=== PATIENT | female | born 1975 | race Caucasian/White ===

== ENCOUNTER 2017-02-16 14:12 | Emergency (ER) | payer OTHER ==
[~2017-02-16] VITALS: Ht 165.1 cm; Wt 60.5 kg
[2017-02-16 14:20] VITALS: TEMP 36.6; Ht 165.1 cm; Wt 60.5 kg
[2017-02-16] MEDS ORDERED: ACETAMINOPHEN 500 MG TAB PO STA (15:19)
--- NOTE | 2017-02-16 15:25 | EMERGENCY ROOM VISIT NOTE ---
History First contact with patient: 14:58 Chief Complaint: WRIST PAIN Stated Complaint: RIGHT WRIST/HAND PAIN History of Present Illness The patient is a 41 year old female who presents to the Emergency Room via private vehicle with complaints of "right wrist/right hand pain. The patient states that she has a history of carpal tunnel, and today around 7 AM, she was lifting a heavy box, and developed a shooting pain in her right wrist full by numbness in her hand. She states that the numbness has subsided but the pain persists. She states that she left work, and went home to rest and took Aleve which is not providing any relief of her pain. She states that she has difficulty moving her fingers. She is right-handed. She is an apartment scheduled with Dr. Ojeda on March 22, and has a nerve conduction study also scheduled in the meantime. She denies any allergies. Review of Systems A complete 6-point Review of Systems was discussed with the patient, with pertinent positives and negatives listed in the History of Present Illness. All remaining Review of Systems questions can be considered negative unless otherwise specified. Past Medical/Surgical History Medical Problems: (1) Carpal tunnel syndrome Family History No pertinent. Social History Smoking Status: Current Every Day Smoker Alcohol Use: occasionally Drug Use: none Marital Status: Occupation Status: employed Current/Historical Medications Scheduled PRN Hydrocodone/Acetaminophen 5MG/325MG (Diamond 5MG/325MG), 1-2 TABLET PO Q6 PRN for Pain Physical Exam Vital Signs Date Time Temp Pulse Resp B/P (MAP) Pulse Ox O2 Delivery O2 Flow Rate FiO2 02/16/17 14:20 36.6 116 16 118/74 98 Room Air Physical Exam VITAL SIGNS - Vital signs and nursing notes were reviewed. Afebrile, normotensive, tachycardic at a rate of 116 bpm, and is saturating well on room air 98%. GENERAL -41-year-old female appearing her stated age who is in no acute distress. Communicates well with provider and answers questions appropriately. SKIN - Without rashes. Skin overlying the right wrist is unremarkable. No breaks in the integument. HEAD - NC/AT. EXTREMITIES - No clubbing or peripheral cyanosis. No pretibial edema present. There is tenderness palpation overlying the right ventral aspect of the distal wrist, as well as upon passive flexion of the right hand/wrist. There is no tenderness to palpation overlying the hand. There is near full range of motion of this region. No neurovascular deficits appreciated. +5/5 strength noted in UE/LE bilaterally. Medical Decision & Procedures ER Provider Diagnostic Interpretation: RIGHT HAND MIN 3 VIEWS ROUTINE CLINICAL HISTORY: Right hand pain. COMPARISON: None FINDINGS: Alignment of the right hand is anatomic. No fracture is identified. Joint spaces are preserved. There is no acute fracture. IMPRESSION: No acute fracture or dislocation of the right hand. Electronically signed by: Roland Calderón M.D. 02/16/2017 3:40 PM Dictated Date/Time: 02/16/2017 3:39 PM RIGHT WRIST W/NAVICULAR MIN 3 VIEWS CLINICAL HISTORY: Right wrist pain. COMPARISON: None FINDINGS: Alignment of the right carpal bones is anatomic. There is no fracture. There is no acute fracture of the distal right radius or ulna. IMPRESSION: No acute fracture or dislocation of the right wrist. Electronically signed by: Roland Calderón M.D. 02/16/2017 3:39 PM Dictated Date/Time: 02/16/2017 3:38 PM Medications Administered Medications (Trade) Dose Ordered Sig/Edilson Route Start Time Stop Time Status Last Admin Dose Admin Acetaminophen (Tylenol Tab) 500 mg NOW STAT PO 02/16/17 15:19 02/16/17 15:20 DC 02/16/17 15:44 500 MG Medical Decision Patient was seen and evaluated as above. After obtaining a thorough history and physical examination radiographs were obtained and the affected regions and ice pack was applied. Patient drove here today, therefore was even Tylenol for her pain. Radiographs are negative, with results as above. I suspect she is experiencing exacerbation of her chronic carpal tunnel. On examination, there is no evidence of neurovascular compromise. She was already wearing a wrist lacer, and was offered another splint but declined. I believe her current splint is appropriate. She is to follow up with neurology, and her family doctor. She was given light duty work restriction. She was educated upon worrisome symptoms which to return, had questions by discharge, and was discharged home in good condition. I did check the patient has many drug monitoring system, and only has one prescription in the past. Due to her subjective reports of pain, and her underlying history of carpal tunnel I will provide her a short course of Diamond. This is on a one-time basis. She was extensively educated upon this. In the evaluation and treatment of this patient, the following differential diagnoses were considered: Wrist Sprain, Wrist Fracture, Wrist Dislocation, Scapholunate Dissociation, Carpal Fracture, Metacarpal Fracture, Radial Styloid Process Fracture, Ulnar Styloid Process Fracture, or Carpal Tunnel Syndrome. Medication Reconcilliation Current Medication List: was not reviewed Impression Primary Impression: Wrist pain, right Departure Information Dispostion Home / Self-Care Condition GOOD Prescriptions Hydrocodone/Acetaminophen 5MG/325MG (Diamond 5MG/325MG) Tab 1-2 TABLET PO Q6 Y for Pain, #15 TAB For Initial Treatment Prov: Bart Veras PA-C 02/16/17 Referrals Kar Esparza M.D.([facility]) (PCP) Patient Instructions My [facility] Additional Instructions You have been treated in the Emergency Department for Wrist Pain. You have been prescribed NORCO to be used for pain control. This is a narcotic medication. You cannot drive or consume alcohol while on this medicine. This medicine should only be used for pain that cannot be controlled with over-the- counter pain medicines. PLEASE NO TYLENOL WITH THE NORCO!! For pain control, you can use the following [id number] medicines (if >12 yo): - Regular strength (200 mg/tab) Advil (ibuprofen) 1-2 tabs every 4-6 hours as needed. Do not exceed a dose of 3200 mg per day. If this is a recent injury (<24 hrs), ice can be applied to the area of pain for the first 3 days to help decrease pain and inflammation. You have been provided the number for an Orthopaedic Surgeon. You should call this number as soon as possible to establish a follow-up visit from today's Emergency Department visit. Keep the brace/splint in place until evaluated by your family doctor or neurology. Return to the Emergency Department if your current symptoms worsen despite treatment course outlined above, or if you develop any of the following symptoms : intractable pain despite aforementioned treatment course or new onset of numbness or tingling of the fingers. Please return the emergency department with any new/his symptoms.
--- NOTE | 2017-02-16 15:40 | DIAGNOSTIC IMAGING REPORT ---
RIGHT WRIST W/NAVICULAR MIN 3 VIEWS CLINICAL HISTORY: Right wrist pain. COMPARISON: None FINDINGS: Alignment of the right carpal bones is anatomic. There is no fracture. There is no acute fracture of the distal right radius or ulna. IMPRESSION: No acute fracture or dislocation of the right wrist. Electronically signed by: Roland Calderón M.D. 02/16/2017 3:39 PM Dictated Date/Time: 02/16/2017 3:38 PM
--- NOTE | 2017-02-16 15:42 | DIAGNOSTIC IMAGING REPORT ---
RIGHT HAND MIN 3 VIEWS ROUTINE CLINICAL HISTORY: Right hand pain. COMPARISON: None FINDINGS: Alignment of the right hand is anatomic. No fracture is identified. Joint spaces are preserved. There is no acute fracture. IMPRESSION: No acute fracture or dislocation of the right hand. Electronically signed by: Roland Calderón M.D. 02/16/2017 3:40 PM Dictated Date/Time: 02/16/2017 3:39 PM
[2017-02-16] MEDS ORDERED: HYDR-5688 PO (16:14)
[2017-02-16 16:21] VITALS: BP 117/69; PULSE 78; O2SAT 98
== END 2017-02-16 16:23 | disposition home or self-care (01) ==
LOC: C.EDB 14:13 → C.EDD 16:23
DX: M25.531 Pain in right wrist (principal); G56.00 Carpal tunnel syndrome, unspecified upper limb; F17.200 Nicotine dependence, unspecified, uncomplicated

== ENCOUNTER 2017-05-15 20:37 | Emergency (ER) | payer OTHER ==
[~2017-05-15] VITALS: Ht 165.1 cm; Wt 61.1 kg
[~2017-05-15 20:37] MED LIST: HYDR-5688 PO
[2017-05-15 20:42] VITALS: TEMP 36.8; Ht 165.1 cm; Wt 61.1 kg
[2017-05-15] MEDS ORDERED: ACET-1256 PO (21:17)
[2017-05-15] MEDS ORDERED: OXYC1TAB3 PO (21:19)
[2017-05-15] MEDS ORDERED: CEPH500C PO (21:19)
[2017-05-15] MEDS ORDERED: CEPHALEXIN 500MG HOME PACK 1 EA BTL PO ONE (21:30)
[2017-05-15] MEDS ORDERED: OXYCODONE IR HOME PACK PO ONE (21:30)
[2017-05-15 21:32] VITALS: BP 120/72; PULSE 78; O2SAT 97
--- NOTE | 2017-05-15 23:11 | EMERGENCY ROOM VISIT NOTE ---
History First contact with patient: 20:55 Chief Complaint: WRIST PAIN Stated Complaint: SWELLING AND PAIN R WRIST History of Present Illness The patient is a 41 year old female who presents to the Emergency Room with complaints of right wrist pain, swelling and redness. The patient reports that she noticed the swelling developed one week ago, but started to develop redness 2 days ago. The patient underwent a full tunnel release on 04/17/[address] Bazan , [facility] orthopedic surgeon. She called her office today, and was told that she could not be seen for another week. The patient rates her discomfort a 7 out of 10. She denies any redeveloping numbness or tingling of the fingers. She denies any pain extending into the forearm, and denies any fevers or chills. Review of Systems 10 system review was performed and was negative except for pertinent positives and negatives as indicated in history of present illness Past Medical/Surgical History Medical Problems: (1) Carpal tunnel syndrome Family History Unremarkable Social History Smoking Status: Current Every Day Smoker Alcohol Use: occasionally Drug Use: none Marital Status: Occupation Status: employed Current/Historical Medications Scheduled Cephalexin Monohydrate (Keflex), 500 MG PO QID Scheduled PRN Acetaminophen (Tylenol), 1,000 MG PO Q6H PRN for Pain Oxycodone Ir (Roxicodone Ir), 1-2 TAB PO Q4H PRN for Pain Physical Exam Vital Signs Date Time Temp Pulse Resp B/P (MAP) Pulse Ox O2 Delivery O2 Flow Rate FiO2 05/15/17 21:32 78 120/72 97 05/15/17 20:42 36.8 100 18 145/84 99 Room Air Physical Exam CONSTITUTIONAL: Healthy and well nourished. Alert and oriented X 3 with positive affect. HEENT: Normocephalic, atraumatic. Pupils equal, round and reactive. NECK: Full active range of motion without discomfort. RESPIRATORY: Clear to auscultation bilaterally with no wheezing, crackles, rhonchi or stridor. CARDIOVASCULAR: Regular rate and rhythm with no murmurs, rubs or gallops. MUSCULOSKELETAL: Examination of the right volar wrist shows a well-healed surgical incision. The patient has notable erythema and edema that is mostly lateral to this surgical incision, and extending proximal to the flexor crease of the wrist. There is no further lymphangitic streaking of the forearm. Passive flexion and extension of the fingers does not worsen her discomfort. Capillary refill is less than 2 seconds. INTEGUMENTARY: No rash or other significant dermatologic conditions noted. NEUROLOGIC: Right hand and fingers are sensory intact. Medical Decision & Procedures ED Course Patient history and physical exam were performed. Nurse's notes were reviewed. Vital signs were reviewed and were normal. Physical exam is concerning for a developing cellulitis. The patient was provided a home pack and prescription for Keflex and OxyIR 5 mg. She was encouraged to alternate ibuprofen and Tylenol for baseline pain relief. She was instructed to contact her surgeon for further urgent follow-up, returning to the Emergency Department for significantly worsening pain, fever or red streaks. The patient was happy with plan of care, voiced understanding of all discharge instructions, and rated her discomfort a 6 out of 10 at the time of discharge. Medical Decision [place] Drug Monitoring [place] Search Results: patient reviewed within database, no issues identified Medication Reconcilliation Current Medication List: was personally reviewed by [place] Blood Pressure Screening Patient's blood pressure: Normal blood pressure Impression Primary Impression: Right wrist cellulitis Additional Impression: Status post carpal tunnel release Departure Information Dispostion Home / Self-Care Condition GOOD Prescriptions Oxycodone Ir (Roxicodone Ir) 5 Mg Tab 1-2 TAB PO Q4H Y for Pain, #15 TAB For Initial Treatment Prov: Sharan Sanchez PA 05/15/17 Cephalexin Monohydrate (Keflex) 500 Mg Cap 500 MG PO QID for 7 Days, #28 CAP Prov: Sharan Sanchez PA 05/15/17 Forms HOME CARE DOCUMENTATION FORM, IMPORTANT VISIT INFORMATION Patient Instructions My [facility] Additional Instructions Complete Keflex antibiotics as prescribed. Ibuprofen 800 mg and/or Tylenol 1000 mg every 8 hours. You may also alternate these medications for more effective pain relief: Ibuprofen --4 HRS--> Tylenol --4 HRS--> ibuprofen --4 HRS--> Tylenol .... OxyIR if needed for worse pain. Do not drink alcohol or drive while taking OxyIR. Follow-up with your surgeon/PCP in 36-48 hours for further reevaluation and management. Return to the emergency department for any progressively worsening swelling, redness, red streaks, pain or fever. Problem Qualifiers
== END 2017-05-15 21:35 | disposition home or self-care (01) ==
LOC: C.EDB 20:38 → C.EDD 21:35
DX: L03.113 Cellulitis of right upper limb (principal); Z98.890 Other specified postprocedural states; F17.200 Nicotine dependence, unspecified, uncomplicated

== ENCOUNTER 2017-08-29 06:48 | Emergency (ER) | payer OTHER ==
[~2017-08-29] VITALS: Ht 165.1 cm; Wt 59.6 kg
[~2017-08-29 06:48] MED LIST changes: +ACET-1256 PO; -HYDR-5688 PO; +OXYC1TAB3 PO
[2017-08-29 06:50] VITALS: Ht 165.1 cm; Wt 59.6 kg
[2017-08-29] MEDS ORDERED: SODIUM CHLORIDE 0.9% 500ML 500 ML IV STA (07:02)
[2017-08-29] MEDS ORDERED: SODIUM CHLORIDE 0.9% 1000ML 1,000 ML IV STA (07:02)
[2017-08-29] MEDS ORDERED: MoRPHine SULFATE 4 MG/ML 1 ML CARP\\VIAL IV STA (07:02)
[2017-08-29] MEDS ORDERED: ONDANSETRON INJ 2 MG/ML 2 ML VIAL IV STA (07:02)
--- NOTE | 2017-08-29 07:19 | EMERGENCY ROOM VISIT NOTE ---
History Report prepared by Charles: Sia Lane Under the Supervision of: Dr. Marie Woodall M.D. First contact with patient: 06:56 Chief Complaint: ABDOMINAL PAIN Stated Complaint: STOMACH PAINS,LASTING 4 DAYS History of Present Illness The patient is a 41 year old female who presents to the Emergency Room with complaints of worsening diffuse abdominal pain for the past 4 days. She states that her pain was initially worse in the left side of her abdomen, but is now located diffusely throughout. She rates her current pain as a 7/10 in severity. This morning she developed nausea and vomiting. She also notes loose bowel movements and lower back pain. She has been taking Tylenol for pain without any relief. She denies any current urinary symptoms but notes that last week she had some burning with urination that seems to have resolved on its own. Her LNMP was about 1 month ago. She notes some abnormal vaginal discharge last week that has resolve. She denies any risk of STIs. The patient denies fever, hematochezia, and melena. She denies alcohol use or recent antibiotic use. She has a history of two c-sections, but denies any other previous abdominal surgeries. Source of History: patient Onset: 4 days ago Position: abdomen Symptom Intensity: 7/10 Timing: worsening Associated Symptoms: + nausea, + vomiting, + back pain, No fevers, No melena , No hematochezia, No urinary symptoms Review of Systems See HPI for pertinent positives & negatives. A total of 10 systems reviewed and were otherwise negative. Past Medical & Surgical Medical Problems: (1) Carpal tunnel syndrome (2) Cervicalgia (3) Wrist pain, left Family History Cancer Diabetes mellitus Hypertension Social History Smoking Status: Current Every Day Smoker Alcohol Use: occasionally Drug Use: none Marital Status: Occupation Status: employed Current/Historical Medications Scheduled PRN Acetaminophen (Tylenol), 1,000 MG PO Q6H PRN for Pain Hydrocodone/Acetaminophen 5MG/325MG (Glen 5MG/325MG), 1-2 TABLETS PO Q6 PRN for Pain Allergies Coded Allergies: No Known Allergies (Unverified , 08/29/17) Physical Exam Vital Signs Date Time Temp Pulse Resp B/P (MAP) Pulse Ox O2 Delivery O2 Flow Rate FiO2 08/29/17 11:08 37.1 78 16 110/79 97 08/29/17 09:20 86 16 104/65 08/29/17 08:09 73 08/29/17 06:50 36.8 72 16 124/66 99 Room Air Physical Exam Vital signs reviewed. General: Well-appearing 41 year old female, in no significant distress. HEENT: No scleral icterus, PERRLA, neck supple. Atraumatic. Cardiovascular: Regular rate and rhythm, no extra sounds. Pulmonary: Clear to auscultation bilaterally, normal work of breathing. Abdomen: Soft, diffuse abdominal tenderness more significant in the LLQ, mild guarding, no rebound, nondistended, positive bowel sounds. : Normal external genitalia, no lesions or discharge, cervix is closed, minimal tenderness with cervical motion, no adnexal masses appreciated. Musculoskeletal: Atraumatic, no peripheral edema. Neurologic: Patient awake alert and oriented x 3 Skin: Warm, dry, no rash Medical Decision & Procedures ER Provider Diagnostic Interpretation: Radiology results as stated below per my review and radiologist interpretation: ABD/PELVIS IV AND ORAL CONT CT DOSE: 316.74 mGycm HISTORY: Abdominal pain appy TECHNIQUE: Multiaxial CT images of the abdomen and pelvis were performed following the use of intravenous and oral contrast. A dose lowering technique was utilized adhering to the principles of ALARA. COMPARISON STUDY: None. FINDINGS: Lung bases are clear. Liver spleen and pancreas are unremarkable. The kidneys enhance uniformly. No evidence for hydronephrosis. Gallbladder is negative for distention. Bowel pattern is unremarkable. No obstructive changes. Normal appendix. Uterus is anteflexed. Bladder is midline. IMPRESSION: No significant abnormality identified within the abdomen or pelvis. The above report was generated using voice recognition software. It may contain grammatical, syntax or spelling errors. Electronically signed by: Antwon Wong M.D. 08/29/2017 9:46 AM Dictated Date/Time: 08/29/2017 9:42 AM Laboratory Results 08/29/17 07:15 Red Blood Count 4.23, Mean Corpuscular Volume 92.4, Mean Corpuscular Hemoglobin 32.6, Mean Corpuscular Hemoglobin Concent 35.3, Mean Platelet Volume 10.6, Neutrophils (%) (Auto) 56.3, Lymphocytes (%) (Auto) 35.3, Monocytes (%) (Auto) 6.4, Eosinophils (%) (Auto) 1.3, Basophils (%) (Auto) 0.7, Neutrophils # (Auto) 2.57, Lymphocytes # (Auto) 1.61, Monocytes # (Auto) 0.29, Eosinophils # (Auto) 0.06, Basophils # (Auto) 0.03 08/29/17 07:15 Test 08/29/17 07:15 08/29/17 11:00 White Blood Count 4.56 K/uL (4.8-10.8) Red Blood Count 4.23 M/uL (4.2-5.4) Hemoglobin 13.8 g/dL (12.0-16.0) Hematocrit 39.1 % (37-47) Mean Corpuscular Volume 92.4 fL (80-100) Mean Corpuscular Hemoglobin 32.6 pg (25-34) Mean Corpuscular Hemoglobin Concent 35.3 g/dl (32-36) Platelet Count 205 K/uL (130-400) Mean Platelet Volume 10.6 fL (7.4-10.4) Neutrophils (%) (Auto) 56.3 % Lymphocytes (%) (Auto) 35.3 % Monocytes (%) (Auto) 6.4 % Eosinophils (%) (Auto) 1.3 % Basophils (%) (Auto) 0.7 % Neutrophils # (Auto) 2.57 K/uL (1.4-6.5) Lymphocytes # (Auto) 1.61 K/uL (1.2-3.4) Monocytes # (Auto) 0.29 K/uL (0.11-0.59) Eosinophils # (Auto) 0.06 K/uL (0-0.5) Basophils # (Auto) 0.03 K/uL (0-0.2) RDW Standard Deviation 42.3 fL (36.4-46.3) RDW Coefficient of Variation 12.6 % (11.5-14.5) Immature Granulocyte % (Auto) 0.0 % Immature Granulocyte # (Auto) 0.00 K/uL (0.00-0.02) Urine Color YELLOW Urine Appearance CLEAR (CLEAR) Urine pH 5.0 (4.5-7.5) Urine Specific [place] 1.022 (1.000-1.030) Urine Protein NEG (NEG) Urine Glucose (UA) NEG (NEG) Urine Ketones NEG (NEG) Urine Occult Blood NEG (NEG) Urine Nitrite NEG (NEG) Urine Bilirubin NEG (NEG) Urine Urobilinogen NEG (NEG) Urine Leukocyte Esterase NEG (NEG) Urine Test NEG (NEG) Anion Gap 6.0 mmol/L (3-11) Est Creatinine Clear Calc Drug Dose 102.5 ml/min Estimated GFR () 127.8 Estimated GFR (Non- 110.3 BUN/Creatinine Ratio 12.1 (10-20) Calcium Level 8.6 mg/dl (8.5-10.1) Magnesium Level 2.0 mg/dl (1.8-2.4) Total Bilirubin 0.5 mg/dl (0.2-1) Direct Bilirubin 0.1 mg/dl (0-0.2) Aspartate Amino Transf (AST/SGOT) 12 U/L (15-37) Alanine Aminotransferase (ALT/SGPT) 17 U/L (12-78) Alkaline Phosphatase 57 U/L (45-117) Total Protein 7.1 gm/dl (6.4-8.2) Albumin 3.7 gm/dl (3.4-5.0) Lipase 90 U/L (73-393) Date/Time Source Procedure Growth Status 08/29/17 11:00 Cervix Swab Trichomonas Preparation - Final Complete Laboratory results per my review. Medications Administered Medications (Trade) Dose Ordered Sig/Edilson Route Start Time Stop Time Status Last Admin Dose Admin Sodium Chloride 500 ml @ 999 mls/hr Q31M STAT IV 08/29/17 07:02 08/29/17 07:32 DC 08/29/17 07:02 999 MLS/HR Sodium Chloride 1,000 ml @ 125 mls/hr Q8H STAT IV 08/29/17 07:02 08/29/17 11:37 DC 08/29/17 07:02 125 MLS/HR Morphine Sulfate (MoRPHine SULFATE INJ) 4 mg NOW STAT IV 08/29/17 07:02 08/29/17 07:06 DC 08/29/17 07:24 4 MG Ondansetron HCl (Zofran Inj) 4 mg NOW STAT IV 08/29/17 07:02 08/29/17 07:06 DC 08/29/17 07:19 4 MG Ketorolac Tromethamine (Toradol Inj) 30 mg NOW STAT IV 08/29/17 10:14 08/29/17 10:15 DC 08/29/17 11:03 30 MG ED Course 0656: Past medical records reviewed. The patient was evaluated in room B2. A complete history and physical examination was performed. 0702: Zofran 4 mg IV, Morphine sulfate 4 mg IV, NSS 1000 ml @ 125 mls/hr IV, NSS 500 ml @ 999 mls/hr IV 1014: Toradol 30 mg IV 1050: At this time I performed a pelvic examination. Please see the physical examination for my findings. 1057: I reassessed the patient at this time. She is feeling better and resting comfortably. I discussed the results and treatment plan with the patient. I answered all pertaining questions that she had. She expressed understanding and verbalized agreement. The patient will be discharged home. Medical Decision Differential diagnosis: Etiologies such as appendicitis, diverticulitis, PUD, biliary pathology, UTI, pancreatitis, obstruction, mesenteric ischemia, aortic pathology, infections, inflammatory bowel disease, renal colic, as well as others were entertained. This patient was evaluated and appeared to be in no significant distress. IV access was obtained and laboratory work was drawn. The patient was placed on the supplemental nurse and found to be in a normal sinus rhythm. She was hydrated with normal saline solution and given 4 mg of IV Zofran. She refused the IV morphine as she wanted to drive home later. Laboratory work reveals a normal white blood cell count. UA is negative, test is negative. CT scan abdomen and pelvis was performed and is negative for acute inflammatory process. Pelvic exam was performed and cultures were sent. There is no acute concerning finding on exam. Patient was made aware of the findings. She will use ibuprofen as needed for pain and was given a short prescription for Glen to be used for severe pain. She will follow-up with [facility] [employer] this week for reevaluation return to the ER for worsening of symptoms or any medical concerns. [place] Drug Monitoring Program Search Results: patient reviewed within database, no issues identified Medication Reconcilliation Current Medication List: was personally reviewed by me Blood Pressure Screening Patient's blood pressure: Normal blood pressure Impression Primary Impression: Dysmenorrhea Additional Impression: Lower abdominal pain Scribe Attestation The scribe's documentation has been prepared under my direction and personally reviewed by me in its entirety. I confirm that the note above accurately reflects all work, treatment, procedures, and medical decision making performed by me. Departure Information Dispostion Home / Self-Care Prescriptions Hydrocodone/Acetaminophen 5MG/325MG (Glen 5MG/325MG) Tab 1-2 TABLETS PO Q6 Y for Pain, #10 TAB Prov: Marie Wodoall M.D. 08/29/17 Referrals Kar Esparza M.D.([facility]) (PCP) Forms Call Back Authorization, HOME CARE DOCUMENTATION FORM, IMPORTANT VISIT INFORMATION Patient Instructions My [facility] Additional Instructions Diagnosis: Lower abdominal pain, dysmenorrhea Ibuprofen 600 mg every 6 hours as needed for pain with food. Glen one tablet every 6 hours as needed for severe pain. Do not drive or take Tylenol with this medication. Warm compresses and gentle stretching. Return to the ER for worsening of symptoms or any medical concerns. Problem Qualifiers
[2017-08-29] MEDS ORDERED: OPTIRAY 320 IV PRN (07:30)
[2017-08-29 07:36] LABS: BASO % 0.7 %; BASO ABS # 0.03 K/uL (0-0.2); EOS % 1.3 %; EOS ABS # 0.06 K/uL (0-0.5); HEMATOCRIT 39.1 % (37-47); HEMOGLOBIN 13.8 g/dL (12.0-16.0); LYMPH % 35.3 %; LYMPH ABS # 1.61 K/uL (1.2-3.4); MEAN CELL VOLUME 92.4 fL (80-100); MEAN CORPUSCULAR HEMOGLOBIN 32.6 pg (25-34); MEAN CORPUSCULAR HGB CONC 35.3 g/dl (32-36); MEAN PLATELET VOLUME 10.6 fL (7.4-10.4); MONO % 6.4 %; MONO ABS # 0.29 K/uL (0.11-0.59); NEUT % 56.3 %; NEUT ABS # 2.57 K/uL (1.4-6.5); PLATELET COUNT 205 K/uL (130-400); RED CELL DISTRIBUTION WIDTH CV 12.6 % (11.5-14.5); RED CELL DISTRIBUTION WIDTH SD 42.3 fL (36.4-46.3); WHITE BLOOD COUNT 4.56 K/uL (4.8-10.8)
[2017-08-29 07:55] LABS: ALBUMIN 3.7 gm/dl (3.4-5.0); CALCIUM 8.6 mg/dl (8.5-10.1); CREATININE 0.65 mg/dl (0.60-1.20); POTASSIUM 3.7 mmol/L (3.5-5.1)
[2017-08-29 08:01] LABS: TOTAL PROTEIN 7.1 gm/dl (6.4-8.2)
--- NOTE | 2017-08-29 09:48 | DIAGNOSTIC IMAGING REPORT ---
ABD/PELVIS IV AND ORAL CONT CT DOSE: 316.74 mGycm HISTORY: Abdominal pain appy TECHNIQUE: Multiaxial CT images of the abdomen and pelvis were performed following the use of intravenous and oral contrast. A dose lowering technique was utilized adhering to the principles of ALARA. COMPARISON STUDY: None. FINDINGS: Lung bases are clear. Liver spleen and pancreas are unremarkable. The kidneys enhance uniformly. No evidence for hydronephrosis. Gallbladder is negative for distention. Bowel pattern is unremarkable. No obstructive changes. Normal appendix. Uterus is anteflexed. Bladder is midline. IMPRESSION: No significant abnormality identified within the abdomen or pelvis. The above report was generated using voice recognition software. It may contain grammatical, syntax or spelling errors. Electronically signed by: Antwon Wong M.D. 08/29/2017 9:46 AM Dictated Date/Time: 08/29/2017 9:42 AM
[2017-08-29] MEDS ORDERED: KETOROLAC TROMETHAMINE 30 MG/ML VIAL IV STA (10:14)
[2017-08-29] MEDS ORDERED: HYDR-5688 PO (11:05)
[2017-08-29 11:08] VITALS: BP 110/79; PULSE 78; TEMP 37.1; O2SAT 97
== END 2017-08-29 11:09 | disposition home or self-care (01) ==
LOC: C.EDB 06:48
DX: N94.6 Dysmenorrhea, unspecified (principal); R11.2 Nausea with vomiting, unspecified; F17.200 Nicotine dependence, unspecified, uncomplicated; Z80.9 Family history of malignant neoplasm, unspecified; Z83.3 Family history of diabetes mellitus; Z82.49 Family history of ischemic heart disease and other diseases of the circulatory system